=== PATIENT | female | born 2000 | race Two or more races ===

== ENCOUNTER 2018-03-07 13:53 | Emergency (ER) | payer MEDICAID ==
[~2018-03-07] VITALS: Ht 167.6 cm; Wt 52.2 kg
[2018-03-07 14:00] VITALS: BP 108/67
[2018-03-07] MEDS ORDERED: ACETAMINOPHEN 500 MG TAB PO ONE (14:15)
[2018-03-07 15:17] LABS: Urine Bacteria FEW /hpf (None Seen); Urine Blood TRACE /uL (Negative); Urine Specific Gravity 1.007 (1.001-1.035); Urine WBC 5 /hpf (0 - 5)
== END 2018-03-07 18:01 | disposition home or self-care (01) ==
LOC: ER 13:53
DX: N39.0 Urinary tract infection, site not specified (principal); J02.9 Acute pharyngitis, unspecified
CPT/HCPCS: 72080; 81001

== ENCOUNTER 2020-01-27 13:29 | Emergency (ER) | payer MEDICAID ==
[~2020-01-27] VITALS: Ht 167.6 cm; Wt 70.8 kg
[2020-01-27 13:38] VITALS: BP 104/69
[2020-01-27 14:24] LABS: Urine Bacteria MOD /hpf (None Seen); Urine Blood Negative /uL (Negative); Urine Hyaline Cast FEW /lpf (0 - 2); Urine Mucus FEW (None Seen); Urine Specific Gravity 1.021 (1.001-1.035); Urine WBC 37 /hpf (0 - 5)
[2020-01-27] MEDS ORDERED: cefTRIAXone SOD 1,000 MG VL IM ONE (14:30)
[2020-01-27] MEDS ORDERED: KETOROLAC TROMETH 60MG/2ML VIAL IM ONE (14:30)
== END 2020-01-27 14:55 | disposition home or self-care (01) ==
LOC: ER 13:29
DX: S39.012A Strain of muscle, fascia and tendon of lower back, initial encounter (principal); N39.0 Urinary tract infection, site not specified; Z32.02 Encounter for pregnancy test, result negative; X50.1XXA Overexertion from prolonged static or awkward postures, initial encounter; Y93.89 Activity, other specified; Y92.89 Other specified places as the place of occurrence of the external cause; Y99.8 Other external cause status
CPT/HCPCS: 81001; 81025; 96372; 99284; J0696; J1885